=== PATIENT | male | born 1955 | race Caucasian/White ===

== ENCOUNTER 2018-10-09 05:36 | Day surgery (SDC) | payer OTHER ==
[2018-10-09] MEDS ORDERED: CEFAZOLIN 2 GM/50 ML (PMX) 50 ML IVPB (07:00)
[2018-10-09] MEDS ORDERED: SOD CHLORIDE 0.9% 1,000 ML IV (07:00)
[2018-10-09] MEDS ORDERED: BUPIVACAINE 0.25% (MPF) 30 ML INJ (07:30)
[2018-10-09] MEDS ORDERED: POLYMYXIN/BACITRACIN 1L IRRIG (07:30)
[2018-10-09] MEDS ORDERED: PROPOFOL 20 ML (08:10)
[2018-10-09] MEDS ORDERED: LIDOCAINE 2% (SDV) 5 ML INJ (08:10)
[2018-10-09] MEDS ORDERED: ROCURONIUM 50 MG INJ (08:12)
[2018-10-09] MEDS ORDERED: CEFAZOLIN 1 GM INJ (08:19)
[2018-10-09] MEDS: BUPIVACAINE 0.25% (MPF) 30 ML INJ INJ (08:57)
[2018-10-09] MEDS ORDERED: NEOSTIGMINE 3 MG/3 ML SYRINGE (08:59)
[2018-10-09] MEDS ORDERED: GLYCOPYRROLATE 0.4 MG INJ (08:59)
[2018-10-09] MEDS: HYDROmorphONE 1 MG/5 ML IV SYRINGE IV ×3 (09:24→09:42)
[2018-10-09] MEDS ORDERED: ONDANSETRON 4 MG INJ IV (09:30)
[2018-10-09] MEDS ORDERED: ALBUTEROL 0.083% (NEB) 2.5 MG/3 ML AMP HHN (09:30)
[2018-10-09] MEDS ORDERED: METOCLOPRAMIDE 10 MG INJ IV (09:30)
[2018-10-09] MEDS ORDERED: LABETALOL HCL 20MG INJ IV (09:30)
[2018-10-09] MEDS ORDERED: HYDROmorphONE 1 MG/5 ML IV SYRINGE IV (09:30)
[2018-10-09] MEDS ORDERED: FENTAnyl 50 MCG/ML VIAL IV ×3 (09:30)
[2018-10-09] MEDS ORDERED: OXYCODONE/ACETAMINOPHEN (5/325) TAB PO ×2 (09:30)
[2018-10-09] MEDS ORDERED: EPHEDrine 25 MG/5 ML SYG IV (09:30)
[2018-10-09] MEDS ORDERED: DIPHENHYDRAMINE 50 MG INJ IV (09:30)
[2018-10-09] MEDS ORDERED: MIDAZOLAM 1 MG/ML 2 ML INJ IV (09:30)
[2018-10-09] MEDS ORDERED: KETOROLAC 30 MG INJ IV (09:30)
[2018-10-09] MEDS ORDERED: MEPERIDINE 25 MG INJ IV (09:30)
[2018-10-09] MEDS: hydrALAzine 20 MG INJ IV (09:36)
[2018-10-09] MEDS: HYDROCODONE/APAP (5/325) TAB PO (09:56)
== END 2018-10-09 10:55 | disposition home or self-care (01) ==
LOC: SDS 05:36
DX: K40.90 Unilateral inguinal hernia, without obstruction or gangrene, not specified as recurrent (principal); E78.5 Hyperlipidemia, unspecified
CPT/HCPCS: 49507